=== PATIENT | female | born 1990 | race Caucasian/White ===

== ENCOUNTER 2016-12-27 11:56 | Emergency (ER) | payer MEDICAID ==
[~2016-12-27] VITALS: Ht 162.6 cm; Wt 86.4 kg
[~2016-12-27 11:56] MED LIST: ACYC-113 PO; HYDR-3240 PO; IBUP-1222 PO; IBUP800T PO; OXYC-302 PO; PREN1TAB60 PO; RANI300C PO
[2016-12-27 13:12] LABS: HEMOGLOBIN 14.3 g/dL (11.7-16.4)
[2016-12-27 13:26] LABS: ASPARTATE AMINO TRANSFERASE 40 U/L (15-37); BLOOD UREA NITROGEN 7 mg/dL (7-18)
[2016-12-27 13:44] LABS: PATH.CAST-FLAG NOT PRESENT; SPERM-FLAG NOT PRESENT; SRC-FLAG NOT PRESENT; XTAL-FLAG NOT PRESENT; YLC-FLAG NOT PRESENT
[2016-12-27] MEDS ORDERED: OXYcodone/APAP 5/325MG TABLET ONE (15:29)
[2016-12-27] MEDS ORDERED: ONDANSETRON ODT 4 MG ONE (15:29)
[2016-12-27] MEDS ORDERED: ONDANSETRON ODT 4 MG PO ONE (15:30)
[2016-12-27] MEDS ORDERED: OXYcodone/APAP 5/325MG TABLET PO ONE (15:30)
[2016-12-27 15:49] VITALS: BP 142/85
== END 2016-12-27 15:52 | disposition home or self-care (01) ==
LOC: ED 15:46
DX: N94.4 Primary dysmenorrhea (principal); K21.9 Gastro-esophageal reflux disease without esophagitis
CPT/HCPCS: 36415; 51701; 80053; 81001; 84703; 85025; 99284; Q0162; P9612

== ENCOUNTER 2017-02-22 10:19 | Emergency (ER) | payer MEDICAID ==
[~2017-02-22] VITALS: Ht 162.6 cm; Wt 83.6 kg
[2017-02-22] MEDS ORDERED: OXYC-223 PO (11:49)
[2017-02-22] MEDS ORDERED: NITR100C56 PO (11:50)
[2017-02-22] MEDS ORDERED: SODIUM CHLORIDE 0.9% 1,000 ML IV ONE (11:51)
[2017-02-22] MEDS ORDERED: HYDROmorphone 1 MG/ML, 1ML ONE ×2 (11:55→12:47)
[2017-02-22] MEDS ORDERED: ONDANSETRON 2MG/ML, 2ML ONE (11:55)
[2017-02-22] MEDS ORDERED: SODIUM CHLORIDE 0.9% 1,000ML IVBOLUS ONE (12:00)
[2017-02-22] MEDS ORDERED: ONDANSETRON 2MG/ML, 2ML IVPush ONE (12:00)
[2017-02-22] MEDS ORDERED: SODIUM CHLORIDE FLUSH 10ML SYR IVF ONE (12:00)
[2017-02-22] MEDS: HYDROmorphone 1 MG/ML, 1ML IVPush PRN ×2 (12:15→12:56)
[2017-02-22 12:44] LABS: BLOOD UREA NITROGEN 9 mg/dL (7-18)
[2017-02-22 12:48] LABS: ASPARTATE AMINO TRANSFERASE 30 U/L (15-37)
[2017-02-22 13:18] LABS: PATH.CAST-FLAG NOT PRESENT; SPERM-FLAG NOT PRESENT; SRC-FLAG NOT PRESENT; XTAL-FLAG NOT PRESENT; YLC-FLAG NOT PRESENT
[2017-02-22 14:01] VITALS: BP 127/74
== END 2017-02-22 14:14 | disposition home or self-care (01) ==
LOC: ED 11:54
DX: K59.00 Constipation, unspecified (principal); K56.7 Ileus, unspecified; K21.9 Gastro-esophageal reflux disease without esophagitis
CPT/HCPCS: 36415; 74022; 80053; 81001; 83690; 85025; 87086; 96361; 96374; 96375; 96376; 99285; J1170; J2405; J7030

== ENCOUNTER 2017-04-03 15:13 | Emergency (ER) | payer MEDICAID ==
[~2017-04-03] VITALS: Ht 162.6 cm; Wt 83.6 kg
[~2017-04-03 15:13] MED LIST changes: +NITR100C56 PO; +OXYC-223 PO
[2017-04-03 15:15] VITALS: BP 128/83
[2017-04-03 16:29] LABS: ASPARTATE AMINO TRANSFERASE 42 U/L (15-37); BLOOD UREA NITROGEN 11 mg/dL (7-18)
== END 2017-04-03 17:09 | disposition home or self-care (01) ==
LOC: ED 16:04
DX: G89.29 Other chronic pain (principal); R10.2 Pelvic and perineal pain; Z90.710 Acquired absence of both cervix and uterus
CPT/HCPCS: 36415; 80053; 81003; 85025; 99284

== ENCOUNTER 2017-06-14 23:17 | Emergency (ER) | payer MEDICAID ==
[~2017-06-14] VITALS: Ht 162.6 cm; Wt 86.0 kg
[~2017-06-14 23:17] MED LIST changes: +IBUP-1223 PO; -IBUP800T PO; -OXYC-223 PO; +OXYC-306 PO
[2017-06-14 23:18] VITALS: BP 121/88
== END 2017-06-15 01:14 | disposition home or self-care (01) ==
LOC: ED 23:59
DX: R19.7 Diarrhea, unspecified (principal); K21.9 Gastro-esophageal reflux disease without esophagitis; Z90.710 Acquired absence of both cervix and uterus
CPT/HCPCS: 99283

== ENCOUNTER 2017-07-16 21:38 | Observation (INO) | payer MEDICAID ==
[~2017-07-16] VITALS: Ht 167.6 cm; Wt 74.0 kg
[2017-07-16 22:02] LABS: DAU SCREEN DISCLAIMER
[2017-07-16 22:06] LABS: HEMATOCRIT 42.2 % (34.6-47.8); HEMOGLOBIN 14.3 g/dL (11.7-16.4); WHITE BLOOD COUNT 9.9 x10^3/uL (3.4-10)
[2017-07-16] MEDS ORDERED: HYDR-3237 PO (22:15)
[2017-07-16] MEDS ORDERED: ZOLP10TA PO (22:16)
[2017-07-16 22:17] LABS: BLOOD UREA NITROGEN 13 mg/dL (7-18)
[2017-07-16 22:22] LABS: ASPARTATE AMINO TRANSFERASE 32 U/L (15-37)
[2017-07-16 22:23] LABS: ACETAMINOPHEN < 2 mcg/mL (10-30)
[2017-07-16] MEDS ORDERED: LORazepam 1MG TABLET ONE (23:45)
[2017-07-17] MEDS ORDERED: LORazepam 1MG TABLET PO ONE
[2017-07-17] MEDS ORDERED: ONDANSETRON ODT 4 MG PO PRN (00:30)
[2017-07-17] MEDS ORDERED: LORazepam 1MG TABLET PO PRN (00:30)
[2017-07-17] MEDS ORDERED: ACETAMINOPHEN 325 MG TABLET PO PRN (00:30)
[2017-07-17] MEDS ORDERED: MIRTAZAPINE 15 MG TABLET PO SCH (00:30)
[2017-07-17] MEDS ORDERED: DOCUSATE 100 MG CAPSULE PO PRN (00:30)
[2017-07-17 01:28] VITALS: BP 141/94
[2017-07-17 08:04] VITALS: BP 121/86
[2017-07-17] MEDS ORDERED: VENLAFAXINE 37.5MG TABLET PO SCH (09:00)
== END 2017-07-17 13:45 ==
LOC: ED 23:55 → EDIP 23:59 → 3E 07-17 00:57
PROVIDERS: ADMIT Internal Medicine; ATTEND Internal Medicine
DX: R45.851 Suicidal ideations (principal); F32.9 Major depressive disorder, single episode, unspecified; F31.9 Bipolar disorder, unspecified; G89.4 Chronic pain syndrome; M79.7 Fibromyalgia; G47.00 Insomnia, unspecified; F12.10 Cannabis abuse, uncomplicated
CPT/HCPCS: 36415; 80053; 80307; 80329; 84703; 85025; 99285; G0378; G0479; G0480

== ENCOUNTER 2019-09-23 11:23 | Emergency (ER) | payer MEDICAID, OTHER ==
[~2019-09-23] VITALS: Ht 162.6 cm; Wt 82.0 kg
[~2019-09-23 11:23] MED LIST changes: +HYDR-3237 PO; +ZOLP10TA PO
[2019-09-23 11:38] VITALS: BP 129/75
--- NOTE | 2019-09-23 11:44 | NUR ---
TWISTED ANKLE AT THE SC LAST NOC PAIN SAME per triage note
--- NOTE | 2019-09-23 11:46 | NUR ---
rt ankle pain [id number]
[2019-09-23] MEDS ORDERED: KETOROLAC 30 MG/1 ML ONE (11:51)
[2019-09-23] MEDS ORDERED: KETOROLAC 30 MG/1 ML IM ONE (12:00)
--- NOTE | 2019-09-23 12:53 | NUR ---
report taken from RN [place], EDT at bedside for air stirrup placement.
--- NOTE | 2019-09-23 13:08 | NUR ---
splint placed by edt, pt tolerated well. pt given fitted crutches and crutch education, demonstrates appropriate use. pt a&o, resps even and unlabored, amb to dc desk with crutch gait accompanied by mother. lili at mo.
== END 2019-09-23 13:07 | disposition home or self-care (01) ==
LOC: ED 13:00
DX: S93.401A Sprain of unspecified ligament of right ankle, initial encounter (principal); K21.9 Gastro-esophageal reflux disease without esophagitis; Z90.710 Acquired absence of both cervix and uterus; X58.XXXA Exposure to other specified factors, initial encounter; Y93.89 Activity, other specified; Y92.89 Other specified places as the place of occurrence of the external cause; Y99.8 Other external cause status
CPT/HCPCS: 73610; 73630; 96372; 99283; J1885

== ENCOUNTER 2021-06-02 18:40 | Emergency (ER) | payer MEDICAID, OTHER ==
[~2021-06-02] VITALS: Ht 162.6 cm; Wt 92.2 kg
[~2021-06-02 18:40] MED LIST changes: -ACYC-113 PO; +ACYC200C13 PO; +HYDR-2214 PO; -HYDR-3240 PO; -OXYC-302 PO; -OXYC-306 PO; +OXYC1TAB14 PO; +OXYC1TAB17 PO
[2021-06-02 18:59] VITALS: BP 129/83
--- NOTE | 2021-06-02 19:03 | NUR ---
EKG DONE IN TRIAGE.
--- NOTE | 2021-06-02 20:44 | NUR ---
associate teacher: patient to room from lobby.
[2021-06-02] MEDS ORDERED: IBUPROFEN 200 MG TABLET ONE (21:17)
[2021-06-02] MEDS ORDERED: BENZONATATE 100 MG CAPSULE ONE (21:18)
[2021-06-02] MEDS ORDERED: ACETAMINOPHEN 500 MG TABLET ONE (21:18)
--- NOTE | 2021-06-02 21:27 | NUR ---
pt medicated per order, toelrated well. warm blankets provided, nadn.
[2021-06-02] MEDS ORDERED: IBUPROFEN 200 MG TABLET PO ONE (21:30)
[2021-06-02] MEDS ORDERED: IBUPROFEN 600 MG TABLET PO ONE (21:30)
[2021-06-02] MEDS ORDERED: ACETAMINOPHEN 500 MG TABLET PO ONE (21:30)
[2021-06-02] MEDS ORDERED: BENZONATATE 100 MG CAPSULE PO ONE (21:30)
--- NOTE | 2021-06-02 22:01 | NUR ---
pt and child swabbed for covid, educated on dc instructions, verbalized undertsanding.
== END 2021-06-02 22:03 | disposition home or self-care (01) ==
LOC: ED 21:38
DX: J06.9 Acute upper respiratory infection, unspecified (principal); Z20.822 Contact with and (suspected) exposure to COVID-19; B34.9 Viral infection, unspecified; K21.9 Gastro-esophageal reflux disease without esophagitis; Z90.710 Acquired absence of both cervix and uterus
CPT/HCPCS: 71045; 93005; 99285; U0003; U0005